=== PATIENT | female | born 1990 | race Caucasian/White ===

== ENCOUNTER 2020-03-31 07:53 | Emergency (ER) | payer OTHER, SELFPAY ==
--- NOTE | 2020-03-31 08:01 | ED_ITS ---
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 She states that the patient she was helping did not want to use his walker and she was holding on to his gait belt when he threw self back on the bed and she was jerked around. She now has mid/upper back pain. Has not tried anything for symptoms prior to arrival. Related Data Home Medications Medication Instructions Recorded Confirmed No Known Home Medications 02/07/20 02/07/20 Allergies Allergy/AdvReac Type Severity Reaction Status Date / Time No Known Drug Allergies Allergy Unverified 03/31/20 08:09 Review of Systems Constitutional Constitutional: Denies headache(s) ENT Ears, Nose, Mouth, and Throat: Denies headache(s) and Denies neck pain Cardiovascular Cardiovascular: Denies chest pain Musculoskeletal Musculoskeletal: Reports back pain, Denies neck pain and Denies tingling Integumentary/Breasts Skin/Breast: Denies rash Neurologic Neurologic: Denies headache(s) and Denies tingling Hematologic/Lymphatic On Anticoagulants: No Patient History Medical History No active medical problems Social History marital status: lives independently: Yes Smoking Status: Never smoker Exam Const General: cooperative and healthy appearing Limitations: mental status not altered [facility] Head: normal to inspection Resp Effort & Inspection: normal respiratory effort Cardio Rate: regular rate Back/Spine/Pelvis Cervical Spine: No cervical spinal tenderness Thoracic/Lumbar Spine: paraspinal tenderness (Thoracic region) and No lumbar spinal tenderness Neuro General: patient alert and patient awake Speech: speech normal Gait: normal gait Extrem Other: Right shoulder, right clavicle, right scapula, right elbow, right wrist unremarkable Psych Appearance: grossly normal and well kempt Medical Decision Making MDM Narrative Medical decision making narrative: The patient's mechanism of action and history and physical today is consistent with muscular etiology. She is tender over the rhomboids/trapezius/latissimus dorsi on the right. Low suspicion for fracture. Feel we can hold on radiologic studies. Was given Toradol here in the ER. I suspect this will improve with time and anti-inflammatories and other conservative measures to include massage, rest and ice. Discharge Plan Departure Patient Disposition: Home Clinical Impression: Upper back pain on right side Instructions: DI for Muscle Strain, How To Perform RICE (Rest, Ice, Compress, Elevate) Activity Restrictions/Additional Instructions: Recommend that you continue with the anti-inflammatories such as Motrin/ibuprofen or Naprosyn. Also recommend heat and massage over the area. I also recommend light stretching. Your symptoms should improve over the next couple days. You have no restrictions on your activities and I do recommend that you try to use your upper extremity and shoulder as much as possible as this will help with the symptoms. Contact her primary provider for follow-up. Prescriptions: No Action No Known Home Medications RF: 0 Referrals: Miscellaneous,Doctor[facility] [Primary Care Provider] -
[2020-03-31 08:03] VITALS: BP 124/81; PULSE 90; RESP 16; TEMP 37; O2SAT 98; BMI 32.9
[2020-03-31] MEDS: KETOROLAC 60 MG/2 ML VIAL 30 MG IM (08:16)
--- NOTE | 2020-03-31 08:21 | PC.NURSE ---
C/o pain in upper back along right shoulder blade worse with movement. 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 States patient refused to use walker and threw himself back into bed.
== END 2020-03-31 08:41 | disposition home or self-care (01) ==
PROVIDERS: Emergency Provider Emergency Medicine
DX: M54.6 Pain in thoracic spine (principal); X50.9XXA Other and unspecified overexertion or strenuous movements or postures, initial encounter; Y99.0 Civilian activity done for income or pay
CPT/HCPCS: 96372; 99281; 99283; J1885

== ENCOUNTER 2020-04-02 11:23 | Emergency (ER) | payer OTHER, SELFPAY ==
[2020-04-02 11:30] VITALS: BP 130/70; PULSE 89; RESP 14; TEMP 37.1; O2SAT 98; BMI 32.9
[2020-04-02 11:31] VITALS: O2SAT 94
[2020-04-02 11:32] VITALS: BP 130/70; PULSE 111; O2SAT 97
--- NOTE | 2020-04-02 12:10 | PC.NURSE ---
Pt states that she fell backwards at work while assisting a pt and injured her thoracic spine. She was seen here, evaluated, medicated and cleared. Pt is back today stating taking Tylenol at home was not controlling her pain at all and she can not get comfortable.
--- NOTE | 2020-04-02 12:15 | DI.RAD.S_ITS ---
PROCEDURE: XR RIBS RT MIN 3V W CXR 1V INDICATIONS: R posterior mid rib pain TECHNIQUE: To views of the right ribs were acquired, along with a single view chest. COMPARISON: None. FINDINGS: Surgical changes and devices: None. Bones and chest wall: No fractures or dislocations. No suspicious bony lesions. Overlying soft tissues appear unremarkable. Lungs and pleura: No pleural effusions or pneumothorax. Lungs appear clear. Mediastinum: Mediastinal contours appear normal. Heart size is normal. IMPRESSION: No displaced right rib fractures. Dictated by: Eben Wiley M.D. on 04/02/2020 at 13:35 Approved by: Eben Wiley M.D. on 04/02/2020 at 13:36
[2020-04-02] MEDS: KETOROLAC 60 MG/2 ML VIAL 30 MG IM (12:25)
--- NOTE | 2020-04-02 12:30 | ED_ITS ---
HPI - Back Pain/Injury <VIC Bran - Last Filed: 04/02/20 15:15> General Chief Complaint: Back Pain/Injury Stated Complaint: pain in back/hurts to breathe Time Seen by Provider: 04/02/20 11:28 Source: patient Limitations: no limitations History of Present Illness HPI Narrative: 29yo female presents to the ED for back pain. She was seen 2 days ago in the emergency department for the same. 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 The patient pushed his walker and flung backwards pulling her to the sideways to right. Patient complained of right-sided upper/mid back pain that is worse with with movement especially when twisting to the right. She states when the event happened she heard a pop. Patient is concerned that this is more than muscle related. Patient states she was discharged with reports of most likely a muscle strain. She was encouraged to take ibuprofen, last dose was yesterday at 4:00 p.m.. She states the pain is constant aching that radiates up and down that area, worse with movement, better with rest. However, she states the pain is making her shake. She denies any surgeries to her back, complains of her the discs in the past but this feels different. She denies any numbness, tingling, saddle paresthesias, loss of bowel or bladder control, chest pain, shortness of breath, trauma to the area, dizziness, fevers, or any other concerns. Related Data Previous Rx's Medication Instructions Recorded cyclobenzaprine 10 mg PO TID PRN #14 tab 04/02/20 Allergies Allergy/AdvReac Type Severity Reaction Status Date / Time No Known Drug Allergies Allergy Verified 04/02/20 11:34 Review of Systems <VIC Bran - Last Filed: 04/02/20 15:15> Review of Systems Narrative: REVIEW OF SYSTEMS: GENERAL: Denies fever or chills. HENT: No head trauma. CARDIOVASCULAR: No chest pain or syncope. RESPIRATORY: No shortness of breath or cough. GASTROINTESTINAL: No nausea, vomiting, diarrhea, or constipation. GENITOURINARY: No flank pain or dysuria. No loss of bowel or bladder control, see HPI. MUSCULOSKELETAL: Complains of R sided back pain, see HPI. INTEGUMENTARY: No rash, lesions, or pruritus. NEURO: No numbness, tingling. Patient History <VIC Bran - Last Filed: 04/02/20 15:15> Medical History No active medical problems Social History marital status: lives independently: Yes Smoking Status: Never smoker Smoking Status: Never smoker alcohol intake frequency: holidays/special occasions only Substance Use Type: does not use Exam <VIC Bran - Last Filed: 04/02/20 15:15> Initial Vital Signs Initial Vital Signs: Vital Signs Temperature 98.7 F 04/02/20 11:30 Pulse Rate 89 04/02/20 11:30 Respiratory Rate 14 04/02/20 11:30 Blood Pressure 130/70 04/02/20 11:30 Pulse Oximetry 98 04/02/20 11:30 PHYSICAL EXAMINATION: GENERAL: Awake and alert. No distress, does appear pain. HENT: Normocephalic, atraumatic. EYES: Symmetrical, sclera white, no periorbital swelling. RESPIRATORY: Normal respiratory rate, trachea midline, airway patent. No stridor, nasal flaring or accessory muscle use. MUSCULOSKELETAL: Tenderness to right mid back along paraspinal vertebral muscles and in to mid ribs below scapula. Full range of motion of right shoulder, no pain with palpation to shoulder, clavicle, for cervical, thoracic, or lumbar spine, no deformities.. Normal gait and coordination. Equal tone and mass bilaterally. EXTREMITIES: CMS intact. SKIN: Warm, dry, soft, appropriate color for ethnicity. No lesions, rashes, or wounds. NEURO: Alert and Oriented X 3. No sensory deficits. PSYCH: Appropriate affect and mood. <Wendy Davila DO - Last Filed: 04/03/20 08:31> Initial Vital Signs Initial Vital Signs: Vital Signs Temperature 98.7 F 04/02/20 11:30 Pulse Rate 89 04/02/20 11:30 Respiratory Rate 14 04/02/20 11:30 Blood Pressure 130/70 04/02/20 11:30 Pulse Oximetry 98 04/02/20 11:30 Course <VIC Bran - Last Filed: 04/02/20 15:15> Course Course Narrative: Patient given Toradol in the emergency department to help with pain. Orders Ordered: Discontinued Medications Ketorolac Tromethamine (Ketorolac 60 Mg/2 Ml Vial) 30 mg IM NOW ONE Stop: 04/02/20 12:16 Last Admin: 04/02/20 12:25 Dose: 30 mg Documented by: DILLON Vital Signs Vital signs: Vital Signs - 8 hr 04/02/20 11:30 04/02/20 11:31 04/02/20 11:32 Temperature 98.7 F Pulse Rate 89 111 H Respiratory Rate 14 Blood Pressure 130/70 130/70 Pulse Oximetry 98 94 97 04/02/20 14:05 Temperature Pulse Rate 89 Respiratory Rate 16 Blood Pressure 122/70 Pulse Oximetry 98 <Wendy Davila DO - Last Filed: 04/03/20 08:31> Orders Ordered: Discontinued Medications Ketorolac Tromethamine (Ketorolac 60 Mg/2 Ml Vial) 30 mg IM NOW ONE Stop: 04/02/20 12:16 Last Admin: 04/02/20 12:25 Dose: 30 mg Documented by: DILLON Vital Signs Vital signs: Vital Signs - 8 hr 04/02/20 11:30 04/02/20 11:31 04/02/20 11:32 Temperature 98.7 F Pulse Rate 89 111 H Respiratory Rate 14 Blood Pressure 130/70 130/70 Pulse Oximetry 98 94 97 04/02/20 14:05 Temperature Pulse Rate 89 Respiratory Rate 16 Blood Pressure 122/70 Pulse Oximetry 98 MDM - Back Pain/Injury <VIC Bran - Last Filed: 04/02/20 15:15> Medical Records Attestation: I reviewed the patient's medical records. Lab Data Attestation: I reviewed the patient's lab results. Imaging Data Rib/Chest: Radiologist's Impression: [address] [id number] ReportSigned Patient: Carla Bar [facility]#: [id number]: 1990Acct:[id number]/Sex: 29 / FDate of Service: 04/02/20Loc: EDAccession Number: [id number] Procedure: XR ribs RT min 3V w CXR1V Ordering Provider: Shanice Staples PROCEDURE: XR RIBS RT MIN 3V W CXR 1V INDICATIONS: R posterior mid rib pain TECHNIQUE: To views of the right ribs were acquired, along with a single view chest. COMPARISON: None. FINDINGS: Surgical changes and devices: None. Bones and chest wall: No fractures or dislocations. No suspicious bony lesions. Overlying soft tissues appear unremarkable. Lungs and pleura: No pleural effusions or pneumothorax. Lungs appear clear. Mediastinum: Mediastinal contours appear normal. Heart size is normal. IMPRESSION: No displaced right rib fractures. Dictated by: Eben Wiley M.D. on 04/02/2020 at 13:35 Approved by: Eben Wiley M.D. on 04/02/2020 at 13:36 MDM Narrative Medical decision making narrative: History and examination concerning for thoracic muscular strain/trapezius muscle injury given mechanism of injury, location of pain, description of pain. I discussed with patient that this usu ally takes at least 6 months to completely resolved. Patient was very concerned that the ?pop? that she heard was something else, not muscle. Due to some tenderness that extends into ribs, rib x-ray was ordered which was negative for fractures. She reports pain continues, had not had any NSAIDs or Tylenol today. She was given Toradol in the emergency department. We discussed at length that back pain often requires follow-up, referral to physical therapy it may be appropriate. She was encouraged to follow up with PCP for further evaluation and treatment. Patient was given cyclobenzaprine to help with stiffness and muscle spasms. She was encouraged to take ibuprofen 600 mg every 6-8 hours for the next few days to help with inflammation. Return precautions given for new or worsening symptoms, she agreed plan of care verbalized understanding. Patient requesting note for absence of work for the next week. Discharge Plan Departure Patient Disposition: Home Clinical Impression: Back spasm Back strain Qualifiers: Encounter type: subsequent encounter Qualified Code(s): S39.012D - Strain of muscle, fascia and tendon of lower back, subsequent encounter Instructions: DI for Back Spasm Activity Restrictions/Additional Instructions: Thank you for entrusting me with your care today. As discussed, x-rays are negative for any fractures. I suspect this is most likely caused by a strain/sprain of your back muscles. I encourage you to take naproxen for the next 3-5 days to help with inflammation and pain. I have also prescribed you a muscle relaxer, these make you drowsy, do not drive while using these. I suggest you follow-up with your PCP or L&I provider for discussion of further treatment and care. Return emergency department for any new or worsening symptoms. Prescriptions: New cyclobenzaprine 10 mg tablet 10 mg PO TID PRN (Reason: muscle spasm) Qty: 14 RF: 0 Stand Alone Forms: Work Release Note <Wendy Davila DO - Last Filed: 04/03/20 08:31> Cosign ED Attending Anitaature Attestation: I was immediately available in the department for consultation. Documentation has been reviewed.
[2020-04-02 14:05] VITALS: BP 122/70; PULSE 89; RESP 16; O2SAT 98
== END 2020-04-02 14:05 | disposition home or self-care (01) ==
PROVIDERS: Emergency Provider Nurse Practitioner
DX: S39.012D Strain of muscle, fascia and tendon of lower back, subsequent encounter (principal); M62.838 Other muscle spasm; R07.81 Pleurodynia; X50.9XXD Other and unspecified overexertion or strenuous movements or postures, subsequent encounter; Y99.0 Civilian activity done for income or pay
CPT/HCPCS: 71101; 96372; 99283; J1885

== ENCOUNTER 2022-07-16 21:27 | Emergency (ER) | payer OTHER, SELFPAY ==
[2022-07-16 21:36] VITALS: BP 123/70; PULSE 125; RESP 18; TEMP 37.9; O2SAT 96
--- NOTE | 2022-07-16 21:50 | ED.GENADULT ---
HPI - General Adult General Chief complaint: Fever Stated complaint: fever, almost passed out Time Seen by Provider: 07/16/22 21:38 Source: patient Mode of arrival: Ambulatory History of Present Illness HPI narrative: Patient is an otherwise healthy 31-year-old female who is here for evaluation of an episode that occurred earlier today. She was at work. Was in her normal state of health when she had a fairly sudden onset of not feeling well. She states she was lightheaded and almost passed out. No cough. No shortness of breath. She did have a fever. She did take Tylenol. She is no palpitations. No abdominal pain. No nausea vomiting. No urinary symptoms. No vaginal bleeding. No skin changes. Related Data Previous Rx's Medication Instructions Recorded cyclobenzaprine 10 mg tablet 10 mg PO TID PRN muscle spasm #14 04/02/20 tabs Allergies Allergy/AdvReac Type Severity Reaction Status Date / Time No Known Drug Allergies Allergy Verified 07/16/22 21:40 Review of Systems Constitutional Constitutional: Reports system reviewed and no additional complaints, except as documented Cardiovascular Cardiovascular: Reports system reviewed and no additional complaints, except as documented Respiratory Respiratory: Reports system reviewed and no additional complaints, except as documented Gastrointestinal Gastrointestinal: Reports system reviewed and no additional complaints, except as documented Genitourinary Genitourinary: Reports system reviewed and no additional complaints, except as documented Integumentary/Breasts Skin/Breast: Reports system reviewed and no additional complaints, except as documented Neurologic Neurologic: Reports system reviewed and no additional complaints, except as documented Patient History Medical History No active medical problems Social History marital status: lives independently: Yes Smoking Status: Never smoker Smoking Status: Never smoker alcohol intake frequency: holidays/special occasions only Substance Use Type: does not use Exam Initial Vital Signs Initial Vital Signs: Vital Signs Temperature 100.2 F H 07/16/22 21:36 Pulse Rate 125 H 07/16/22 21:36 Respiratory Rate 18 07/16/22 21:36 Blood Pressure 123/70 07/16/22 21:36 Pulse Oximetry 96 07/16/22 21:36 Oxygen Delivery Method Room Air 07/16/22 21:36 Const General: cooperative, comfortable and No ill appearing HENPA Head: normal to inspection and normocephalic Resp Effort & Inspection: normal respiratory effort Auscultation: clear to auscultation bilaterally Cardio Rate: regular rate Rhythm: regular rhythm GI Inspection: normal to inspection and non-distended Palpation: soft and No tender Skin General: no rashes or lesions noted Neuro General: patient alert, patient awake and moves all extremities Extrem General: normal to inspection Course Orders Ordered: ED Orders 07/16/22 21:30 Respiratory Panel (Film Array) Stat 07/16/22 22:00 Complete Blood Count AUTO DIFF Stat Comprehensive Metabolic Panel Stat Lipase Stat Discontinued Medications Sodium Chloride (Normal Saline 0.9%) 1,000 mls @ 1,000 mls/hr IV BOLUS ONE Stop: 07/16/22 22:49 Last Infusion: 07/16/22 22:50 Dose: 0 mls/hr Documented By: Admin: 07/16/22 22:02 Dose: 1,000 mls/hr Documented By: SHEILA Ketorolac Tromethamine (Ketorolac 30 Mg/Ml Vial) 30 mg IV NOW ONE Stop: 07/16/22 21:51 Last Admin: 07/16/22 22:02 Dose: 30 mg Documented By: SHEILA Vital Signs Vital signs: Vital Signs - 8 hr 07/16/22 21:36 Temperature 100.2 F H Pulse Rate 125 H Respiratory Rate 18 Blood Pressure 123/70 Pulse Oximetry 96 Oxygen Delivery Method Room Air Medical Decision Making Lab Data Lab results reviewed: Yes I reviewed the patient's lab results. 07/16/22 22:00 07/16/22 22:00 Labs: Lab Results 07/16/22 07/16/22 07/16/22 Range/Units 21:30 22:00 22:00 WBC 5.5 (4.5-11.0) X10^3/uL RBC 4.30 (4.0-5.2) X10^6/uL Hgb 12.7 (12.0-16.0) g/dL Hct 36.7 (36-46) % MCV 85.3 (80-100) fL MCH 29.5 (26-34) PG MCHC 34.6 (30-36) % RDW 13.1 (11.6-14.8) % Plt Count 150 (150-400) X10^3/uL Neut % (Auto) 86.7 H (50-75) % Lymph % (Auto) 6.7 L (25-40) % [place] % (Auto) 6.1 (3-14) % Eos % (Auto) 0.1 L (2-4) % Baso % (Auto) 0.4 (0-2) % Neut # (Auto) 4700 (4395-1128) /uL Lymph # (Auto) 400 L (7846-4235) /uL [place] # (Auto) 300 (0-900) /uL Eos # (Auto) 0 (0-450) /uL Baso # (Auto) 0 (0-100) /uL Sodium 135 L (137-145) mmol/L Potassium 3.4 (3.4-5.1) mmol/L Chloride 103 (98-107) mmol/L Carbon Dioxide 23 (22-32) mmol/L BUN 9 (7-17) mg/dL Creatinine 0.54 (0.52-1.04) mg/dL Estimated GFR > 60 (>60) mL/min BUN/Creatinine Ratio 16.7 (6-22) Glucose 91 (70-100) mg/dL Calcium 8.6 (8.4-10.2) mg/dL Total Bilirubin 1.3 (0.2-1.3) mg/dL AST 17 (14-36) IU/L ALT 18 (<35) IU/L Alkaline Phosphatase 54 (38-126) U/L Total Protein 7.1 (6.3-8.2) g/dL Albumin 4.3 (3.5-5.0) g/dL Globulin 2.8 (1.7-4.1) g/dL Albumin/Globulin Ratio 1.5 (1.0-2.8) Lipase 53 (23-300) U/L Chlamy pneumoniae PCR Not detected (Not Detect) Adenovirus (PCR) Not detected (Not Detect) B. pertussis DNA (PCR) Not detected (Not Detecte) B.parapertussis DNA PCR Not detected (Not Detecte) Coronavirus OC43 (PCR) Not detected (Not Detect) Coronavirus HKU1 (PCR) Not detected (Not Detect) Coronavirus 229E (PCR) Not detected (Not Detect) SARS-CoV-2 (PCR) Detected H (Not Detecte) Coronavirus NL63 (PCR) Not detected (Not Detect) Human Metapneumovir PCR Not detected (Not Detect) Influenza Type A (PCR) Not detected (Not Detect) Influenza Type B (PCR) Not detected (Not Detect) M. pneumoniae (PCR) Not detected (Not Detect) Parainfluenza 1 (PCR) Not detected (Not Detect) Parainfluenza 2 (PCR) Not detected (Not Detect) Parainfluenza 3 (PCR) Not detected (Not Detect) Parainfluenza 4 (PCR) Not detected (Not Detect) RSV (PCR) Not detected (Not Detect) Entero/Rhino (PCR) Not detected (Not Detect) Point of Care Testing Test Results Negative Urine Dip Bedside Urine Glucose Negative Bedside Urine Bilirubin - Negative Bedside Urine Ketone +/- 5 Urine Specific [place] 1.020 Bedside Urine Occult Blood - Negative Bedside Urine pH 6.0 Bedside Urine Protein - Negative Bedside Urine Urobilinogen +/- 1mg Bedside Urine Nitrite - Negative Bedside Urine Leukocytes - Negative Esterase Point of care testing: Point of Care Testing Test Results Negative Urine Dip Bedside Urine Glucose Negative Bedside Urine Bilirubin - Negative Bedside Urine Ketone +/- 5 Urine Specific [place] 1.020 Bedside Urine Occult Blood - Negative Bedside Urine pH 6.0 Bedside Urine Protein - Negative Bedside Urine Urobilinogen +/- 1mg Bedside Urine Nitrite - Negative Bedside Urine Leukocytes - Negative Esterase MDM Narrative Medical decision making narrative: Patient is nontoxic appearing. Workup here in the emergency department is positive for COVID-19. This does explain her presenting symptoms today. Patient is not hypoxic. Not tachypneic. Lungs are clear. No indication for chest x-ray. Patient was informed of the diagnosis. Will discharge patient home with return precautions. Discharge Plan Departure Patient Disposition: Home Clinical Impression: COVID-19 Instructions: COVID-19 Activity Restrictions/Additional Instructions: Recommend that you follow all of the current CDC guidelines with regard to quarantine and COVID-19. You can take Tylenol or ibuprofen for any fevers or body aches. Return to the emergency department for new or worsening symptoms. Prescriptions: No Action cyclobenzaprine 10 mg tablet 10 mg PO TID PRN (Reason: muscle spasm) Qty: 14 0RF Referrals: Madonna Cho PA-C [Primary Care Provider] - Stand Alone Forms: Patient Portal/API, Work Release Note
[2022-07-16] MEDS: KETOROLAC 30 MG/ML VIAL IV (22:02)
[2022-07-16] MEDS: SODIUM CHLORIDE 0.9% 1,000 ML 1000 ML IV (22:02)
[2022-07-16 22:04] LABS: Add Manual Diff / Slide Review NO; Basophils Absolute Auto 0 /uL (0-100); Basophils Percent Auto 0.4 % (0-2); Eosinophils Absolute Auto 0 /uL (0-450); Eosinophils Percent Auto 0.1 % (2-4); Hematocrit 36.7 % (36-46); Hemoglobin 12.7 g/dL (12.0-16.0); Lymphocytes Absolute Auto 400 /uL (1100-4500); Lymphocytes Percent Auto 6.7 % (25-40); Mean Corpuscular HGB Conc 34.6 % (30-36); Mean Corpuscular Hemoglobin 29.5 PG (26-34); Mean Corpuscular Volume 85.3 fL (80-100); Monocytes Absolute Auto 300 /uL (0-900); Monocytes Percent Auto 6.1 % (3-14); Neutrophils Absolute Auto 4700 /uL (1500-7000); Neutrophils Percent Auto 86.7 % (50-75); Platelet Count 150 X10^3/uL (150-400); Red Cell Distribution Width 13.1 % (11.6-14.8); White Blood Cell Count 5.5 X10^3/uL (4.5-11.0)
[2022-07-16 22:05] VITALS: BMI 25.9
[2022-07-16 22:17] LABS: Alanine Aminotransferase 18 IU/L (<35); Albumin 4.3 g/dL (3.5-5.0); Albumin Globulin Ratio 1.5 (1.0-2.8); Alkaline Phosphatase 54 U/L (38-126); Aspartate Aminotransferase 17 IU/L (14-36); BUN Creatinine Ratio 16.7 (6-22); Bilirubin Total 1.3 mg/dL (0.2-1.3); Blood Urea Nitrogen 9 mg/dL (7-17); Calcium 8.6 mg/dL (8.4-10.2); Carbon Dioxide 23 mmol/L (22-32); Chloride 103 mmol/L (98-107); Estimated Glomerular Filt Rate > 60 mL/min (>60); Globulin 2.8 g/dL (1.7-4.1); Glucose 91 mg/dL (70-100); HEMOLYSIS < 15 (0-50); Lipase 53 U/L (23-300); Potassium 3.4 mmol/L (3.4-5.1); Sodium 135 mmol/L (137-145); Total Protein 7.1 g/dL (6.3-8.2)
[2022-07-16 22:59] LABS: Adenovirus Not Detected (Not Detect); B. parapertussis Not Detected (Not Detecte); Bordetella pertussis Not Detected (Not Detecte); Chlamydophila pneumoniae Not Detected (Not Detect); Coronavirus 229E Not Detected (Not Detect); Coronavirus HKU1 Not Detected (Not Detect); Coronavirus NL 63 Not Detected (Not Detect); Coronavirus OC43 Not Detected (Not Detect); Human Metapneumovirus Not Detected (Not Detect); Human Rhinovirus/Enterovirus Not Detected (Not Detect); Influenza A Not Detected (Not Detect); Influenza B Not Detected (Not Detect); Mycoplasma pneumoniae Not Detected (Not Detect); Parainfluenza Virus 1 Not Detected (Not Detect); Parainfluenza Virus 2 Not Detected (Not Detect); Parainfluenza Virus 3 Not Detected (Not Detect); Parainfluenza Virus 4 Not Detected (Not Detect); Respiratory Syncytial Virus Not Detected (Not Detect)
[2022-07-16 23:00] LABS: SARS- CoV-2 Detected (Not Detecte)
[2022-07-16 23:08] VITALS: BP 110/61; PULSE 97; RESP 18; O2SAT 96
== END 2022-07-16 23:16 | disposition home or self-care (01) ==
PROVIDERS: Emergency Provider Emergency Medicine; PCP Physician Assistant Medical
DX: U07.1 COVID-19 (principal)
CPT/HCPCS: 36415; 80053; 81003; 81025; 83690; 85025; 87633; 96374; 99284; J1885

== ENCOUNTER → 2022-11-12 09:43 | Outpatient (CLI) | payer OTHER, SELFPAY ==
--- NOTE | 2022-11-12 09:44 | DI.US.S_ITS ---
PROCEDURE: US OB LIMITED INDICATIONS: Viability OUTSIDE/PRIOR DATING DATA: Last menstrual period (LMP): 07/31/2022. LMP-based estimated date of delivery (WOODROW): 05/07/2023. First dating scan (date and location): 09/28/2022. Estimated date of delivery (WOODROW) from first dating scan: 05/04/2023. The calculations are made using the clinical WOODROW of 05/07/2023. TECHNIQUE: Real-time scanning was performed of the fetus, with image documentation and biometric measurements. Endovaginal scanning: Not performed COMPARISON: None. FINDINGS: General: A single living intrauterine gestation is present. Presentation: Vertex. Placenta: Placental position is posterior , without previa. Amniotic fluid index: 9.7 cm, normal range is 5-24 cm. Single deepest vertical pocket is 3.1 cm. heart rate: 145 beats per minute. Maternal cervical canal: 3.3 cm long. Normal lower limit is 2.5 cm. biometrics: Biparietal diameter: 3.0 centimeters, 15 weeks 4 days Head circumference: 11.5 centimeters, 15 weeks 4 days Abdominal circumference: 9.0 centimeters, 16 weeks 1 day Femur length: 17.1 centimeters, 15 weeks 1 day Clinically estimated gestational age: 15 weeks Composite gestational age from present scan: 15 weeks 3 days Estimated weight and percentile: Too early for calculation. Other: Not applicable. IMPRESSION: Single living intrauterine at 15 weeks 0 days, WOODROW of 05/07/2023. Limited anatomy survey due to early gestation. Recommend repeat anatomy survey at 20 weeks. We strive to produce accurate, complete, and clear reports of imaging services. To assist us in improving patient care, this report was composed using standard report templates and voice recognition software. Therefore, it may contain abnormal punctuation, insertions and/or omissions. Occasional wrong-word or sound-alike substitutions may occur. Though we review the report and make efforts to correct it, we do recommend that the report be read carefully in proper context to recognize any text inaccuracies. Dictated by: Dallas Perez M.D. on 11/13/2022 at 11:53 Approved by: Dallas Perez M.D. on 11/13/2022 at 11:58
== END ==
PROVIDERS: PCP Physician Assistant Medical; Referring Provider Obstetrics & Gynecology; Visit Provider Obstetrics & Gynecology
DX: Z34.82 Encounter for supervision of other normal pregnancy, second trimester (principal); Z3A.15 15 weeks gestation of pregnancy
CPT/HCPCS: 76815; 76830

== ENCOUNTER → 2022-11-24 12:39 | Outpatient (CLI) | payer OTHER, SELFPAY ==
[2022-11-26 21:40] LABS: Gest Age on Col Date 16.7 weeks (.); Insulin Dep Diabetes No (.); OSBR Risk 1IN 3404 (.); Results Report (.); Test Results *Screen Negative* (.)
== END ==
PROVIDERS: PCP Physician Assistant Medical; Referring Provider Specialist; Visit Provider Specialist
DX: Z34.92 Encounter for supervision of normal pregnancy, unspecified, second trimester (principal); Z3A.16 16 weeks gestation of pregnancy
CPT/HCPCS: 36415; 82105

== ENCOUNTER → 2022-12-10 12:42 | Outpatient (CLI) | payer OTHER, SELFPAY ==
--- NOTE | 2022-12-10 12:43 | DI.US.S_ITS ---
PROCEDURE: US OB >= 14 WEEKS FETUS INDICATIONS: 20 WEEK ANATOMY SCAN OUTSIDE/PRIOR DATING DATA: Last menstrual period (LMP): 07/31/2022 LMP-based estimated date of delivery (WOODROW): 05/07/2023. First dating scan (date and location): 09/28/2022. Estimated date of delivery (WOODROW) from first dating scan: 05/04/2023. TECHNIQUE: Real-time scanning was performed of the fetus, with image documentation and biometric measurements. COMPARISON: [facility], OB LIMITED, 11/12/2022, 10:10. FINDINGS: General: A single living intrauterine gestation is present. Presentation: Vertex. Placenta: Placental position is posterior , without previa. Amniotic fluid index: 11.0 cm, normal range is 5-24 cm. Single deepest vertical pocket is 3.6 cm. heart rate: 153 beats per minute. Maternal cervical canal: 3.5 cm long. Normal lower limit is 2.5 cm. biometrics: Biparietal diameter: 19 weeks Head circumference: 19 Abdominal circumference: 19 weeks 1 day Femur length: 19 Clinically estimated gestational age: 18 weeks 6 days Composite gestational age from present scan: 19 weeks 2 days Estimated weight and percentile: 289 g; 76 percentile Anatomic survey: Neuro: Ventricles are non-dilated at less than 10 mm. Cisterna magna is normal at 3-11 mm. Cerebellum is normal in size and morphology. Nuchal skin fold: Normal at less than 6 mm between 14-21 weeks gestational age. Face: Nose and lips, facial profile are normal. Spine: No evidence for spina bifida. Heart: 4-chambered heart is present, with normal ventricular outflow tracts. Diaphragm: Diaphragm is intact. Stomach: Left-sided stomach is present. Kidneys: No hydronephrosis. Normal is less than 5 mm in 2nd trimester, less than 7 mm in 3rd trimester. Cord: 3-vessel cord has orthotopic insertion. Bladder: Normal in size. Extremities: All 4 extremities identified. IMPRESSION: 1. Single living IUP redemonstrated and interval growth is normal. 2. Normal anatomic survey. We strive to produce accurate, complete, and clear reports of imaging services. To assist us in improving patient care, this report was composed using standard report templates and voice recognition software. Therefore, it may contain abnormal punctuation, insertions and/or omissions. Occasional wrong-word or sound-alike substitutions may occur. Though we review the report and make efforts to correct it, we do recommend that the report be read carefully in proper context to recognize any text inaccuracies. Dictated by: Kevin HERRERA Interpreted: Mick Ceja MD on 12/10/2022 at 14:53 Transcribed by: STELLA on 12/10/2022 at 14:55 Approved by: Mick Ceja M.D. on 12/10/2022 at 18:16
== END ==
PROVIDERS: PCP Physician Assistant Medical; Referring Provider Specialist; Visit Provider Specialist
DX: Z34.92 Encounter for supervision of normal pregnancy, unspecified, second trimester (principal); Z3A.20 20 weeks gestation of pregnancy
CPT/HCPCS: 76811

== ENCOUNTER → 2023-02-18 09:24 | Outpatient (CLI) | payer OTHER, SELFPAY ==
[2023-02-18 10:08] LABS: Hematocrit 34.7 % (36-46); Hemoglobin 12.3 g/dL (12.0-16.0)
== END ==
PROVIDERS: PCP Physician Assistant Medical; Referring Provider Obstetrics & Gynecology; Visit Provider Obstetrics & Gynecology
DX: Z34.83 Encounter for supervision of other normal pregnancy, third trimester (principal); Z3A.29 29 weeks gestation of pregnancy
CPT/HCPCS: 36415; 85014; 85018; 86850

== ENCOUNTER 2023-03-18 10:12 | Observation (INO) | payer OTHER, SELFPAY ==
--- NOTE | 2023-03-18 10:32 | DI.US.S_ITS ---
PROCEDURE: US OB LIMITED INDICATIONS: IUGR OUTSIDE/PRIOR DATING DATA: Last menstrual period (LMP): July 31, 2022. LMP-based estimated date of delivery (WOODROW): May 07, 2023. First dating scan (date and location): September 28, 2022. Estimated date of delivery (WOODROW) from first dating scan: May 04, 2023. The calculations are made using the LMP WOODROW of May 07, 2023. TECHNIQUE: Real-time scanning was performed of the fetus, with image documentation and biometric measurements. Endovaginal scanning: Not performed COMPARISON: None. FINDINGS: General: A single living intrauterine gestation is present. Presentation: Vertex. Placenta: Placental position is left posterior , without previa. Amniotic fluid index: 9.9 cm, normal range is 5-24 cm. Single deepest vertical pocket is 3.9 cm. heart rate: 130 beats per minute. Maternal cervical canal: 3.1 cm long. Normal lower limit is 2.5 cm. biometrics: Biparietal diameter: 8.1 cm, 32 weeks and 5 days Head circumference: 28.9 cm, 31 weeks and 5 days Abdominal circumference: 25.3 cm, 29 weeks and 3 days Femur length: 6.0 cm, 31 weeks and 1 day Clinically estimated gestational age: 33 weeks and 2 days Composite gestational age from present scan: 31 weeks and 2 days Estimated weight and percentile: 1580 g, this correlates with the 1st percentile Other: Biophysical profile score of 8 out of 8. Umbilical artery S/D ratios measure 2.6 (umbilical), 4.1 (mid cord), 3.2 (placental). Normal Doppler waveforms of the umbilical artery. IMPRESSION: Single living intrauterine gestation with estimated sonographic gestational age of approximately 33 weeks and 2 days. Expected interval growth has occurred. Estimated weight of approximately 1580 g which correlates with the 1st percentile for gestational age. Borderline elevated umbilical artery S/D ratio at the mid cord measuring 4.1. No evidence for reversal of diastolic flow. There appears to be preserved but low amplitude to diastolic flow on Doppler waveforms. Findings are consistent with intrauterine growth restriction. Recommend clinical correlation. We strive to produce accurate, complete, and clear reports of imaging services. To assist us in improving patient care, this report was composed using standard report templates and voice recognition software. Therefore, it may contain abnormal punctuation, insertions and/or omissions. Occasional wrong-word or sound-alike substitutions may occur. Though we review the report and make efforts to correct it, we do recommend that the report be read carefully in proper context to recognize any text inaccuracies. Dictated by: Fran Dickson M.D. on 03/18/2023 at 13:55 Approved by: Fran Dickson M.D. on 03/18/2023 at 14:25
--- NOTE | 2023-03-18 12:25 | DI.US.S_ITS ---
PROCEDURE: US PERIPH VENOUS LOW EXTREM RT INDICATIONS: EDEMA TECHNIQUE: Real-time imaging, as well as color and pulse Doppler interrogation, were performed of the lower extremity deep veins from the inguinal ligament to the popliteal fossa, with documentation of the visualized calf veins. COMPARISON: None. FINDINGS: The common femoral, femoral, popliteal, and the visualized calf veins are normally compressible, and free of intraluminal thrombus. Color and pulse Doppler demonstrate normal phasic intraluminal flow. There is normal augmentation response to distal compression maneuver. IMPRESSION: No findings of lower extremity deep venous thrombosis. Dictated by: Reji Han M.D. on 03/18/2023 at 12:57 Approved by: Reji Han M.D. on 03/18/2023 at 12:57
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
== END 2023-03-18 12:32 | disposition home or self-care (01) ==
PROVIDERS: Admitting Provider Specialist; PCP Physician Assistant Medical; Referring Provider Specialist; Visit Provider Specialist
DX: O36.5930 Maternal care for other known or suspected poor fetal growth, third trimester, not applicable or unspecified (principal); O26.893 Other specified pregnancy related conditions, third trimester; M79.661 Pain in right lower leg; M79.89 Other specified soft tissue disorders; Z3A.33 33 weeks gestation of pregnancy
CPT/HCPCS: 59025; 76815; 76819; 76820; 93971; G0378; G0379

== ENCOUNTER 2023-03-22 09:51 | Outpatient (CLI) | payer OTHER, SELFPAY ==
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
--- NOTE | 2023-03-25 10:54 | DI.US.S_ITS ---
PROCEDURE: US OB BIOPHYSICAL PROFILE INDICATIONS: ASYMETTRIC GROWTH RESTRICTION/DECREASED MOVEMENT OUTSIDE/PRIOR DATING DATA: Last menstrual period (LMP): 07/31/2022. LMP-based estimated date of delivery (WOODROW): 05/07/2023. First dating scan (date and location): 09/28/2022. Estimated date of delivery (WOODROW) from first dating scan: 05/04/2023. TECHNIQUE: Real-time scanning was performed of the fetus for biophysical profile, with image documentation. Color and pulse Doppler interrogation was also performed of the umbilical artery near its insertion into the placenta. Endovaginal scanning: Not performed COMPARISON: None. FINDINGS: General: A single living intrauterine gestation is present. Presentation: Vertex. Placenta: Placental position is posterior , without previa. Amniotic fluid index: 11.0 cm, normal range is 5-24 cm. Single deepest vertical pocket is 4.3 cm. heart rate: 137 beats per minute. Maternal cervical canal: Not well seen Clinically estimated gestational age: 33 weeks 6 days Biophysical profile: Tone: 2 points. Movement: 2 points. Respiration: 0 points. Largest pocket of fluid: 2 points. Umbilical artery Doppler: 4.8, 4.0, 6.9 Survey of anatomy includes normal chest/diaphragm, stomach/abdomen, bilateral renal regions, and urinary bladder/pelvis. There is a probable single nuchal cord. IMPRESSION: 1. Single living intrauterine gestation. 2. Biophysical profile score is 6/8, with 0 points awarded for respiration. 3. Probable nuchal cord . 4. Abnormal cord Doppler indices. We strive to produce accurate, complete, and clear reports of imaging services. To assist us in improving patient care, this report was composed using standard report templates and voice recognition software. Therefore, it may contain abnormal punctuation, insertions and/or omissions. Occasional wrong-word or sound-alike substitutions may occur. Though we review the report and make efforts to correct it, we do recommend that the report be read carefully in proper context to recognize any text inaccuracies. Dictated by: Kerry Zamudio M.D. on 03/25/2023 at 12:12 Approved by: Kerry Zamudio M.D. on 03/25/2023 at 12:15
== END 2023-03-22 10:32 | disposition home or self-care (01) ==
LOC: LABOR 10:30 → OB 03-23 13:43
PROVIDERS: PCP Physician Assistant Medical; Referring Provider Obstetrics & Gynecology; Visit Provider Obstetrics & Gynecology
DX: O36.5930 Maternal care for other known or suspected poor fetal growth, third trimester, not applicable or unspecified (principal); Z3A.33 33 weeks gestation of pregnancy
CPT/HCPCS: 59025; G0378; G0379

== ENCOUNTER 2023-03-25 10:51 | Inpatient (IN) | payer OTHER, SELFPAY ==
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
[2023-03-25 12:56] VITALS: BP 131/80; PULSE 83; TEMP 2.2; TEMP 35.9
[2023-03-25] MEDS: BETAMETHASONE 30 MG/5 ML MDV 12 MG IM (13:22)
[2023-03-25 13:31] LABS: COVID19 -Nasal RAPID Negative (Negative)
[2023-03-25 14:06] LABS: Add Manual Diff / Slide Review NO; Basophils Absolute Auto 100 /uL (0-100); Basophils Percent Auto 0.7 % (0-2); Eosinophils Absolute Auto 0 /uL (0-450); Eosinophils Percent Auto 0.2 % (2-4); Hematocrit 37.5 % (36-46); Hemoglobin 12.7 g/dL (12.0-16.0); Lymphocytes Absolute Auto 2200 /uL (1100-4500); Mean Corpuscular Volume 85.4 fL (80-100); Monocytes Absolute Auto 400 /uL (0-900); Monocytes Percent Auto 4.3 % (3-14); Neutrophils Absolute Auto 5700 /uL (1500-7000); Neutrophils Percent Auto 68.8 % (50-75); Platelet Count 210 X10^3/uL (150-400); Red Blood Cell Count 4.39 X10^6/uL (4.0-5.2); Red Cell Distribution Width 12.1 % (11.6-14.8); White Blood Cell Count 8.3 X10^3/uL (4.5-11.0)
[2023-03-25] MEDS: LACTATED RINGERS 1,000 ML 100 ML IV (14:18)
[2023-03-25 16:47] LABS: Strep Grp B PCR NEG for Grp B Strep
== END 2023-03-25 15:15 | disposition short-term general hospital (02) | DRG 832 ==
PROVIDERS: Admitting Provider Specialist; PCP Physician Assistant Medical; Referring Provider Specialist; Visit Provider Specialist
DX: O36.8130 Decreased fetal movements, third trimester, not applicable or unspecified (principal); O47.03 False labor before 37 completed weeks of gestation, third trimester; O36.5930 Maternal care for other known or suspected poor fetal growth, third trimester, not applicable or unspecified; O36.8330 Maternal care for abnormalities of the fetal heart rate or rhythm, third trimester, not applicable or unspecified; Z3A.34 34 weeks gestation of pregnancy
CPT/HCPCS: 59025; 59050; 76819; 85025; 86850; 86870; 86900; 86901; 87081; 87635; 87653; 96360; 96372; 99235; G0378; G0379; J0702